=== PATIENT | male | born 1990 | race Hispanic/Latino ===

== ENCOUNTER 2023-09-27 16:34 | Emergency (ER) | payer OTHER ==
[~2023-09-27] VITALS: Ht 177.8 cm; Wt 122.5 kg
[~2023-09-27 16:34] MED LIST: LAMOTRIGINE150 MG PO; LITHIUM CARBON300 M2 PO; LITHIUM CARBON300 MG PO
[2023-09-27 17:44] VITALS: PULSE 71; RESP 14; TEMP 98.7; O2SAT 100
== END 2023-09-27 17:46 | disposition home or self-care (01) ==
LOC: ER 16:40
DX: S00.83XA Contusion of other part of head, initial encounter (principal); W51.XXXA Accidental striking against or bumped into by another person, initial encounter; Y93.83 Activity, rough housing and horseplay; Y92.89 Other specified places as the place of occurrence of the external cause; D64.9 Anemia, unspecified; F31.81 Bipolar II disorder
CPT/HCPCS: 70450; 72125; 99284

== ENCOUNTER 2024-10-03 17:28 | Emergency (ER) | payer OTHER ==
[~2024-10-03] VITALS: Ht 177.8 cm; Wt 122.5 kg
[2024-10-03 18:10] VITALS: TEMP 98.4
[2024-10-03 18:55] LABS: BASOPHILS % 0.3 % (0.0-1.0); EOSINOPHILS % 0.1 % (0.0-6.0); LYMPHOCYTES % 32.5 % (18.0-39.1); MONOCYTES % 9.5 % (4.4-11.3); NEUTROPHILS % 57.3 % (38.7-80.0); RED CELL DISTRIBUTION WIDTH 13.0 % (11.7-14.4)
[2024-10-03 19:18] LABS: EST GLOMERULAR FILTRATION RATE 99.0 ML/MIN (>=60)
[2024-10-03] MEDS: SODIUM CHLORIDE 0.9% 1000ML 1,000 ML IV ONE (19:49)
[2024-10-03 21:15] VITALS: PULSE 82; RESP 22; O2SAT 98
== END 2024-10-03 21:32 | disposition home or self-care (01) ==
LOC: ER 18:33
DX: R20.0 Anesthesia of skin (principal); S00.83XA Contusion of other part of head, initial encounter; G90.A Postural orthostatic tachycardia syndrome [POTS]; R55 Syncope and collapse; W01.198A Fall on same level from slipping, tripping and stumbling with subsequent striking against other object, initial encounter; Y92.89 Other specified places as the place of occurrence of the external cause; D64.9 Anemia, unspecified; F31.81 Bipolar II disorder
CPT/HCPCS: 36415; 70450; 80053; 84484; 85025; 93005; 99284; J7030